=== PATIENT | female | born 1980 | race Caucasian/White ===

== ENCOUNTER 2019-04-22 11:38 | Inpatient (IN) ==
[2019-04-22] MEDS ORDERED: Ondansetron 4 MG/2 ML VIAL IVP PRN (12:41)
[2019-04-22] MEDS ORDERED: Naloxone 0.4 MG/ML INJ IVP PRN ×2 (12:41→14:59)
[2019-04-22 14:15] LABS: Hematocrit 17.7 % (35.3-44.9); Mean Corpuscular HGB Conc 27.7 g/dL (31.6-35.5); Mean Corpuscular Hemoglobin 37.1 pg (28.0-33.3); Mean Corpuscular Volume 134.1 fL (83.0-100.0); Mean Platelet Volume 9.3 fL (9.4-12.4); Nucleated Red Blood Cells 2.5 /100 WBC (0); Platelet Count 215 K/mcL (140-400); Red Blood Count 1.32 M/mcL (3.82-4.97); Red Cell Distribution Width 17.1 % (11.5-14.5); Retculocyte # 0.39 M/mcL (0.05-0.10); White Blood Count 6.4 K/mcL (4.3-11.1)
[2019-04-22 14:53] LABS: Reticulocyte % 30.9 % (1.6-2.8)
[2019-04-22 14:59] LABS: Hemoglobin 4.9 g/dL (11.5-15.4)
[2019-04-22 15:01] LABS: Lymphocytes # 0.9 K/mcL (0.6-4.6); Monocytes # 0.3 K/mcL (0.0-1.3); Neutrophils # 5.3 K/mcL (1.6-8.9)
[2019-04-22 15:03] LABS: Anisocytosis 1+ (Not Present); Platelet Estimate Normal (Normal); Polychromasia 1+ (Not Present)
[2019-04-22 15:04] LABS: Macrocytosis Present (Not Present)
[2019-04-22 15:48] LABS: Folate > 22.3 ng/mL (3.0-16.0); Vitamin B12 370 pg/mL (250-1100)
[2019-04-22] MEDS: methylPREDNISolone 125 MG/2 ML VIAL IVP SCH (17:59)
[2019-04-22] MEDS ORDERED: methylPREDNISolone 125 MG/2 ML VIAL IVP SCH (18:00)
[2019-04-22] MEDS ORDERED: 0.9 % Sodium Chloride 250 ML ONE (19:01)
[2019-04-22] MEDS ORDERED: *HR* LORazepam 2 MG/ML VIAL IVP ONE (23:43)
[2019-04-23] MEDS: methylPREDNISolone 125 MG/2 ML VIAL IVP SCH ×2 (00:27→07:53)
[2019-04-23 04:57] LABS: Basophils % 0.1 %; Eosinophils % 0.1 %; Mean Platelet Volume 9.4 fL (9.4-12.4)
[2019-04-23 04:59] LABS: Hematocrit 18.3 % (35.3-44.9); Immature Granulocytes % 1.6 % (0-4); Lymphocytes # 0.8 K/mcL (0.6-4.6); Lymphocytes % 5.5 %; Mean Corpuscular HGB Conc 27.9 g/dL (31.6-35.5); Mean Corpuscular Hemoglobin 35.7 pg (28.0-33.3); Monocytes # 0.5 K/mcL (0.0-1.3); Monocytes % 3.8 %; Neutrophils # 12.4 K/mcL (1.6-8.9); Nucleated Red Blood Cells 1.6 /100 WBC (0); Platelet Count 234 K/mcL (140-400); Red Blood Count 1.43 M/mcL (3.82-4.97); Red Cell Distribution Width 22.1 % (11.5-14.5); Segmented Neutrophils % 88.9 %; White Blood Count 13.9 K/mcL (4.3-11.1)
[2019-04-23 05:02] LABS: BUN/Creatinine Ratio 22 (6-26); Blood Urea Nitrogen 15 mg/dL (6-20); Calcium 8.6 mg/dL (8.6-10.3); Carbon Dioxide 20 mEq/L (23-29); Chloride 108 mEq/L (98-107); Glucose 203 mg/dL (70-105); Osmolality,Calculated 289 (280-300); Potassium 3.9 mEq/L (3.5-5.1); Sodium 136 mEq/L (136-145); eGFR For African Americans > 60 (> 60); eGFR For Non-African Americans > 60 (> 60)
[2019-04-23 05:13] LABS: Hemoglobin 5.1 g/dL (11.5-15.4)
[2019-04-23] MEDS ORDERED: THYROID PORK 130 MG PO SCH (06:00)
[2019-04-23] MEDS: THYROID PORK 32.5 MG PO SCH ×2 (06:03→10:17)
[2019-04-23 06:06] LABS: Macrocytosis Present (Not Present); Polychromasia 2+ (Not Present)
[2019-04-23 06:07] LABS: Anisocytosis 2+ (Not Present); Platelet Estimate Normal (Normal)
[2019-04-23] MEDS ORDERED: 0.9 % Sodium Chloride 250 ML IVC SCH (10:15)
[2019-04-23] MEDS: THYROID PORK 65 MG PO SCH (10:17)
[2019-04-23 10:44] LABS: Hematocrit 19.5 % (35.3-44.9)
[2019-04-23 10:50] LABS: Hemoglobin 5.5 g/dL (11.5-15.4)
[2019-04-23] MEDS ORDERED: 0.9 % Sodium Chloride 500 ML ONE (11:22)
[2019-04-23] MEDS ORDERED: Nicotine 2 MG GUM BC PRN (12:27)
[2019-04-23] MEDS: Nicotine 7 MG PATCH.TD24 TD SCH (14:32)
[2019-04-23] MEDS: methylPREDNISolone 250 MG in 0.9 % Sodium Chloride 50 ML IVPB SCH ×2 (16:35→22:51)
[2019-04-23] MEDS: Acetaminophen 325 MG TABLET PO PRN (16:42)
[2019-04-23 20:20] LABS: Eosinophils % 0.1 %; Hemoglobin 6.1 g/dL (11.5-15.4); Mean Platelet Volume 9.4 fL (9.4-12.4); Platelet Count 211 K/mcL (140-400)
[2019-04-23 20:22] LABS: Basophils % 0.1 %; Hematocrit 21.7 % (35.3-44.9); Hemoglobin 6.2 g/dL (11.5-15.4); Immature Granulocytes % 2.8 % (0-4); Lymphocytes # 0.9 K/mcL (0.6-4.6); Lymphocytes % 6.1 %; Mean Corpuscular HGB Conc 28.6 g/dL (31.6-35.5); Mean Corpuscular Hemoglobin 35.6 pg (28.0-33.3); Mean Corpuscular Volume 124.7 fL (83.0-100.0); Monocytes # 0.7 K/mcL (0.0-1.3); Monocytes % 4.7 %; Neutrophils # 13.1 K/mcL (1.6-8.9); Nucleated Red Blood Cells 2.7 /100 WBC (0); Red Blood Count 1.74 M/mcL (3.82-4.97); Red Cell Distribution Width 26.2 % (11.5-14.5); Segmented Neutrophils % 86.2 %; White Blood Count 15.2 K/mcL (4.3-11.1)
[2019-04-23 21:05] LABS: Basophilic Stippling 1+ (Not Present); Polychromasia 2+ (Not Present)
[2019-04-23] MEDS: *HR* LORazepam 0.5 MG TABLET PO PRN (23:35)
[2019-04-24 02:22] LABS: Basophils % 0.1 %; Eosinophils % 0.1 %; Lymphocytes % 6.6 %; Platelet Count 200 K/mcL (140-400)
[2019-04-24 02:24] LABS: Hematocrit 20.6 % (35.3-44.9); Immature Granulocytes % 3.4 % (0-4); Mean Corpuscular HGB Conc 28.6 g/dL (31.6-35.5); Mean Corpuscular Hemoglobin 36.2 pg (28.0-33.3); Mean Corpuscular Volume 126.4 fL (83.0-100.0); Mean Platelet Volume 9.3 fL (9.4-12.4); Monocytes # 0.6 K/mcL (0.0-1.3); Monocytes % 3.9 %; Neutrophils # 13.6 K/mcL (1.6-8.9); Red Blood Count 1.63 M/mcL (3.82-4.97); Red Cell Distribution Width 25.9 % (11.5-14.5); Segmented Neutrophils % 85.9 %; White Blood Count 15.8 K/mcL (4.3-11.1)
[2019-04-24 02:33] LABS: Hemoglobin 5.9 g/dL (11.5-15.4)
[2019-04-24 04:22] LABS: Anisocytosis 1+ (Not Present); Macrocytosis Present (Not Present); Polychromasia 2+ (Not Present)
[2019-04-24 04:23] LABS: Basophilic Stippling 1+ (Not Present); Platelet Estimate Normal (Normal)
[2019-04-24] MEDS: methylPREDNISolone 250 MG in 0.9 % Sodium Chloride 50 ML IVPB SCH ×3 (08:04→23:17)
[2019-04-24] MEDS: THYROID PORK 32.5 MG PO SCH (08:04)
[2019-04-24] MEDS: THYROID PORK 65 MG PO SCH (08:04)
[2019-04-24] MEDS: Nicotine 7 MG PATCH.TD24 TD SCH (11:03)
[2019-04-24] MEDS: Acetaminophen 325 MG TABLET PO PRN (11:42)
[2019-04-24 16:26] LABS: Basophils % 0.1 %; Hematocrit 21.5 % (35.3-44.9); Hemoglobin 6.1 g/dL (11.5-15.4); Immature Granulocytes % 4.2 % (0-4); Lymphocytes # 0.9 K/mcL (0.6-4.6); Lymphocytes % 5.5 %; Mean Corpuscular HGB Conc 28.4 g/dL (31.6-35.5); Mean Corpuscular Hemoglobin 36.3 pg (28.0-33.3); Mean Platelet Volume 9.6 fL (9.4-12.4); Monocytes # 0.8 K/mcL (0.0-1.3); Monocytes % 4.9 %; Neutrophils # 13.9 K/mcL (1.6-8.9); Nucleated Red Blood Cells 4.2 /100 WBC (0); Platelet Count 226 K/mcL (140-400); Red Blood Count 1.68 M/mcL (3.82-4.97); Red Cell Distribution Width 24.5 % (11.5-14.5); Segmented Neutrophils % 85.3 %; White Blood Count 16.3 K/mcL (4.3-11.1)
[2019-04-24 16:44] LABS: Anisocytosis 1+ (Not Present); Macrocytosis Present (Not Present); Platelet Estimate Slight Decrease (Normal); Polychromasia 1+ (Not Present)
[2019-04-24] MEDS: *HR* LORazepam 0.5 MG TABLET PO PRN (23:54)
[2019-04-25 02:50] LABS: Hematocrit 21.2 % (35.3-44.9); Mean Corpuscular HGB Conc 28.3 g/dL (31.6-35.5); Mean Corpuscular Hemoglobin 36.4 pg (28.0-33.3); Mean Corpuscular Volume 128.5 fL (83.0-100.0); Platelet Count 226 K/mcL (140-400); Red Blood Count 1.65 M/mcL (3.82-4.97); Red Cell Distribution Width 23.3 % (11.5-14.5); White Blood Count 14.5 K/mcL (4.3-11.1)
[2019-04-25 02:51] LABS: Mean Platelet Volume 9.9 fL (9.4-12.4); Nucleated Red Blood Cells 4.1 /100 WBC (0)
[2019-04-25 04:15] LABS: Anisocytosis 3+ (Not Present); Lymphocytes # 1.2 K/mcL (0.6-4.6); Macrocytosis Present (Not Present); Microcytosis Present (Not Present); Neutrophils # 13.1 K/mcL (1.6-8.9); Platelet Estimate Normal (Normal)
[2019-04-25 04:16] LABS: Polychromasia 2+ (Not Present)
[2019-04-25] MEDS: Nicotine 7 MG PATCH.TD24 TD SCH (08:19)
[2019-04-25] MEDS: THYROID PORK 32.5 MG PO SCH (08:27)
[2019-04-25] MEDS: THYROID PORK 65 MG PO SCH (08:27)
[2019-04-25] MEDS ORDERED: Folic Acid 1 MG TABLET PO SCH (09:45)
[2019-04-25] MEDS: methylPREDNISolone 250 MG in 0.9 % Sodium Chloride 50 ML IVPB SCH (10:00)
[2019-04-25 13:45] LABS: Mycoplasma pneumoniae IgG 1.09 U/L (<=0.09)
[2019-04-25 14:24] VITALS: BP 141/79
[2019-04-25 16:11] LABS: Basophils % 0.2 %; Eosinophils % 0.1 %; Hematocrit 21.7 % (35.3-44.9); Hemoglobin 6.3 g/dL (11.5-15.4); Immature Granulocytes % 4.8 % (0-4); Lymphocytes # 0.8 K/mcL (0.6-4.6); Lymphocytes % 6.4 %; Mean Corpuscular Hemoglobin 37.7 pg (28.0-33.3); Mean Corpuscular Volume 129.9 fL (83.0-100.0); Mean Platelet Volume 9.7 fL (9.4-12.4); Monocytes # 0.6 K/mcL (0.0-1.3); Monocytes % 4.5 %; Neutrophils # 10.7 K/mcL (1.6-8.9); Nucleated Red Blood Cells 5.2 /100 WBC (0); Platelet Count 215 K/mcL (140-400); Red Blood Count 1.67 M/mcL (3.82-4.97); Red Cell Distribution Width 22.8 % (11.5-14.5); White Blood Count 12.7 K/mcL (4.3-11.1)
[2019-04-25 16:33] LABS: Anisocytosis 1+ (Not Present); Hypochromasia Present (Not Present); Macrocytosis Present (Not Present); Microcytosis Present (Not Present); Ovalocytes 1+ (Not Present); Polychromasia 2+ (Not Present)
[2019-04-25 16:34] LABS: Platelet Estimate Normal (Normal); Tear Drop Cells 1+ (Not Present)
[2019-04-25] MEDS ORDERED: predniSONE 20 MG TABLET PO SCH (17:00)
[2019-04-26 09:39] LABS: ANA IgG by ELISA DETECTED (None Detected)
[2019-04-26 20:29] LABS: ANA HEp-2 IgG IFA DETECTED (<1:80); Anti Nuclear Ab Pattern HOMOGENEOUS
[2019-04-28 06:36] LABS: Cold Agglutinins <1:32 (<1:32)
== END 2019-04-25 17:36 | disposition home or self-care (01) | DRG 660 ==
LOC: CDU → SUATTDRO 12:32 → 2NNU 13:58 → SUATTDRO 17:33 → 3ANU 04-25 11:28
PROVIDERS: ADMIT Internal Medicine; ATTEND Internal Medicine